=== PATIENT | female | born 1950 | race Caucasian/White ===

== ENCOUNTER → 2019-06-13 14:22 | Outpatient (CLI) | payer MEDICARE, MEDICAID, SELFPAY ==
[2019-06-13 15:41] LABS: Amphetamine/Metha Screen,Urine Negative ng/mL (<1000); Barbiturates Screen,Urine Negative ng/mL (<200); Benzodiazepines Screen,Urine Negative ng/mL (<200); Cannabinoid Screen,Urine Negative ng/mL (<50); Cocaine Screen,Urine Negative ng/mL (<300); Methadone Screen,Urine Negative ng/mL (<300); Opiate Screen,Urine Positive ng/mL (<300); Phencyclidine Screen,Urine Negative ng/mL (<25)
== END ==
PROVIDERS: Visit Provider Emergency Medicine
DX: M79.2 Neuralgia and neuritis, unspecified (principal)
CPT/HCPCS: 80305

== ENCOUNTER → 2019-07-04 17:48 | Outpatient (CLI) | payer MEDICARE, MEDICAID, SELFPAY ==
[2019-07-04 19:34] LABS: Amphetamine/Metha Screen,Urine Negative ng/mL (<1000); Barbiturates Screen,Urine Negative ng/mL (<200); Benzodiazepines Screen,Urine Negative ng/mL (<200); Cannabinoid Screen,Urine Negative ng/mL (<50); Cocaine Screen,Urine Negative ng/mL (<300); Methadone Screen,Urine Negative ng/mL (<300); Opiate Screen,Urine Positive ng/mL (<300); Phencyclidine Screen,Urine Negative ng/mL (<25)
== END ==
PROVIDERS: Visit Provider Emergency Medicine
DX: M54.2 Cervicalgia (principal)
CPT/HCPCS: 80305

== ENCOUNTER → 2019-07-14 14:13 | Outpatient (CLI) | payer MEDICARE, MEDICAID, SELFPAY ==
--- NOTE | 2019-07-14 14:20 | XR_ITS ---
PROCEDURE: XR KNEE RT 4V CLINICAL INDICATION: knee pain The COMPARISON: No exams were available for comparison FINDINGS: No fracture or dislocation. No lytic or blastic change. There is normal mineralization. The joint spaces are well-preserved. No significant degenerative/arthritic changes. No erosive changes evident. Other findings:None. IMPRESSION: No acute findings. Dictated by: Russ Pritchett MD 07/14/2019 18:03 Electronically signed by Russ Pritchett MD in [place] 07/14/2019 18:03
--- NOTE | 2019-07-14 14:20 | XR_ITS ---
PROCEDURE: XR KNEE LT 4V CLINICAL INDICATION: knee pain COMPARISON: XR KNEE RT 4V from 07/14/2019 FINDINGS: No fracture or dislocation. No lytic or blastic change. There is normal mineralization. The joint spaces are well-preserved. No significant degenerative/arthritic changes. No erosive changes evident. Other findings:There is a well-circumscribed 7 mm rounded calcific density projecting along the lateral aspect of the patella on the sunrise view and may represent an old patellar fracture. IMPRESSION: Old lateral patellar fracture versus bipartite patella otherwise negative Dictated by: Russ Pritchett MD 07/14/2019 18:02 Electronically signed by Russ Pritchett MD in [place] 07/14/2019 18:02
== END ==
PROVIDERS: PCP Emergency Medicine; Visit Provider Orthopaedic Surgery
DX: M25.562 Pain in left knee (principal); M25.561 Pain in right knee
CPT/HCPCS: 73564

== ENCOUNTER → 2019-08-01 16:31 | Outpatient (CLI) | payer MEDICARE, MEDICAID, SELFPAY ==
[2019-08-01 19:30] LABS: Amphetamine/Metha Screen,Urine Negative ng/mL (<1000); Barbiturates Screen,Urine Negative ng/mL (<200); Benzodiazepines Screen,Urine Negative ng/mL (<200); Cannabinoid Screen,Urine Negative ng/mL (<50); Cocaine Screen,Urine Negative ng/mL (<300); Methadone Screen,Urine Negative ng/mL (<300); Opiate Screen,Urine Negative ng/mL (<300); Phencyclidine Screen,Urine Negative ng/mL (<25)
[2019-08-10 17:08] LABS: Opiates Negative (Cutoff=100)
== END ==
PROVIDERS: Visit Provider Emergency Medicine
DX: G89.29 Other chronic pain (principal)
CPT/HCPCS: 80305; 80361; 80365; G0480

== ENCOUNTER → 2019-08-25 14:56 | Outpatient (CLI) | payer MEDICARE, MEDICAID, SELFPAY ==
--- NOTE | 2019-08-25 15:03 | MR_ITS ---
PROCEDURE: MR LUMBAR SPINE WO CON CLINICAL INDICATION: back pain Low back pain with bilateral leg pain numbness and tingling COMPARISON: No exams were available for comparison TECHNIQUE: Standard multiplanar multiecho sequences are performed without contrast. 3-D MIP and myelographic images are also rendered and reviewed FINDINGS: There is normal alignment. The spinal cord ends at the L2 level. T12-L1, L1-L2, L2-L3, L3-L4, and L4-5 have an unremarkable appearance. There is mild facet and ligamentum hypertrophy at L5-S1 with mild bilateral lateral recess and foraminal narrowing slightly greater on the right. There is transverse narrowing of the canal at this level however the AP dimension of the canal is normal. IMPRESSION: 1. There is mild facet and ligamentum hypertrophy at L5-S1 with mild bilateral lateral recess and foraminal narrowing slightly greater on the right. There is transverse narrowing of the canal at this level however the AP dimension of the canal is normal. 2. Otherwise negative MRI of the lumbar spine Dictated by: Russ Pritchett MD 08/26/2019 10:41 Electronically signed by Russ Pritchett MD in [place] 08/26/2019 10:41
== END ==
PROVIDERS: PCP Emergency Medicine; Visit Provider Emergency Medicine
DX: M54.16 Radiculopathy, lumbar region (principal); M54.5 Low back pain
CPT/HCPCS: 72148; 76376

== ENCOUNTER → 2019-09-01 13:54 | Outpatient (CLI) | payer MEDICARE, MEDICAID, SELFPAY ==
[2019-09-01 14:57] LABS: Amphetamine/Metha Screen,Urine Negative ng/mL (<1000); Barbiturates Screen,Urine Negative ng/mL (<200); Benzodiazepines Screen,Urine Negative ng/mL (<200); Cannabinoid Screen,Urine Negative ng/mL (<50); Cocaine Screen,Urine Positive ng/mL (<300); Methadone Screen,Urine Negative ng/mL (<300); Opiate Screen,Urine Negative ng/mL (<300); Phencyclidine Screen,Urine Negative ng/mL (<25)
[2019-09-07 20:11] LABS: Benzoylecgonine (GC/MS) 225 ng/mL (Cutoff=150); Cocaine + Metabolite Positive (.)
== END ==
PROVIDERS: Visit Provider Emergency Medicine
DX: M79.2 Neuralgia and neuritis, unspecified (principal); Z79.899 Other long term (current) drug therapy
CPT/HCPCS: 80305; 80353

== ENCOUNTER → 2019-09-15 17:18 | Outpatient (CLI) | payer MEDICARE, MEDICAID, SELFPAY ==
[2019-09-15 18:26] LABS: Amphetamine/Metha Screen,Urine Negative ng/mL (<1000); Barbiturates Screen,Urine Negative ng/mL (<200); Benzodiazepines Screen,Urine Positive ng/mL (<200); Cannabinoid Screen,Urine Negative ng/mL (<50); Cocaine Screen,Urine Negative ng/mL (<300); Methadone Screen,Urine Negative ng/mL (<300); Opiate Screen,Urine Positive ng/mL (<300); Phencyclidine Screen,Urine Negative ng/mL (<25)
[2019-09-28 23:07] LABS: Alprazolam Negative (Cutoff=100); Benzodiazepines Negative ng/mL (Cutoff=100); Clonazepam Negative (Cutoff=100); Codeine Negative (Cutoff=100); Flurazepam Negative (Cutoff=100); Hydrocodone Positive (.); Hydromorphone Negative (Cutoff=100); Lorazepam Negative (Cutoff=100); Midazolam Negative (Cutoff=100); Morphine Negative (Cutoff=100); Temazepam Negative (Cutoff=100); Triazolam Negative (Cutoff=100)
[2019-09-29 10:46] LABS: Hydrocodone Confirm 356 ng/mL (Cutoff=100); Opiates Positive (.)
== END ==
PROVIDERS: Visit Provider Emergency Medicine
DX: G89.29 Other chronic pain (principal); Z79.899 Other long term (current) drug therapy
CPT/HCPCS: 80305; 80346; 80361; G0480

== ENCOUNTER → 2019-10-06 16:49 | Outpatient (CLI) | payer MEDICARE, MEDICAID, SELFPAY ==
[2019-10-06 17:22] LABS: Amphetamine/Metha Screen,Urine Negative ng/mL (<1000); Barbiturates Screen,Urine Negative ng/mL (<200); Benzodiazepines Screen,Urine Negative ng/mL (<200); Cannabinoid Screen,Urine Negative ng/mL (<50); Cocaine Screen,Urine Positive ng/mL (<300); Methadone Screen,Urine Negative ng/mL (<300); Opiate Screen,Urine Positive ng/mL (<300); Phencyclidine Screen,Urine Negative ng/mL (<25)
== END ==
PROVIDERS: Visit Provider Emergency Medicine
DX: M47.816 Spondylosis without myelopathy or radiculopathy, lumbar region (principal)
CPT/HCPCS: 80305

== ENCOUNTER → 2019-11-03 17:20 | Outpatient (CLI) | payer MEDICARE, MEDICAID, SELFPAY ==
[2019-11-03 19:43] LABS: Amphetamine/Metha Screen,Urine Negative ng/mL (<1000); Barbiturates Screen,Urine Negative ng/mL (<200); Benzodiazepines Screen,Urine Negative ng/mL (<200); Cannabinoid Screen,Urine Negative ng/mL (<50); Cocaine Screen,Urine Positive ng/mL (<300); Methadone Screen,Urine Negative ng/mL (<300); Opiate Screen,Urine Positive ng/mL (<300); Phencyclidine Screen,Urine Negative ng/mL (<25)
== END ==
PROVIDERS: Visit Provider Emergency Medicine
DX: M54.2 Cervicalgia (principal)
CPT/HCPCS: 80305

== ENCOUNTER → 2019-12-06 18:37 | Outpatient (CLI) | payer MEDICARE, MEDICAID, SELFPAY ==
[2019-12-06 19:30] LABS: Amphetamine/Metha Screen,Urine Negative ng/mL (<1000); Barbiturates Screen,Urine Negative ng/mL (<200); Benzodiazepines Screen,Urine Negative ng/mL (<200); Cannabinoid Screen,Urine Negative ng/mL (<50); Cocaine Screen,Urine Negative ng/mL (<300); Methadone Screen,Urine Negative ng/mL (<300); Opiate Screen,Urine Positive ng/mL (<300); Phencyclidine Screen,Urine Negative ng/mL (<25)
== END ==
PROVIDERS: Visit Provider Emergency Medicine
DX: M47.816 Spondylosis without myelopathy or radiculopathy, lumbar region (principal)
CPT/HCPCS: 80305

== ENCOUNTER → 2019-12-11 09:34 | Outpatient (POV) | payer MEDICARE, MEDICAID, SELFPAY | PROVIDERS: Visit Provider Nurse Practitioner Family | DX: Z00.00 Encounter for general adult medical examination without abnormal findings (principal) ==

== ENCOUNTER → 2020-04-02 13:15 | Outpatient (CLI) | payer MEDICARE, MEDICAID, SELFPAY ==
[2020-04-02 15:41] LABS: Basophils # 0.1 K/mm3 (0-0.2); Basophils % 0.9 % (0.1-2.0); Eosinophils # 0.2 K/mm3 (0.0-0.4); Eosinophils % 1.8 % (0.1-12.0); Hematocrit 46.6 % (37.0-47.0); Hemoglobin 15.9 g/dL (12.2-16.2); Lymphocytes # 3.2 K/mm3 (0.7-4.5); Lymphocytes % 32.2 % (10-50); Mean Corpuscular HGB Conc 34.2 g/dL (31.8-35.4); Mean Corpuscular Hemoglobin 31.4 pg (27.0-31.2); Mean Corpuscular Volume 91.9 fl (81-99); Mean Platelet Volume 9.8 fl (7.4-10.4); Monocytes # 0.7 K/mm3 (0.1-1.0); Monocytes % 6.8 % (1.7-9.3); Neutrophils # 5.7 K/mm3 (1.8-7.8); Neutrophils % 58.3 % (37.0-80.0); Platelet Count 422 K/mm3 (142-424); Red Blood Count 5.07 M/mm3 (4.20-5.40); Red Cell Distribution Width 13.8 % (11.5-17.5); White Blood Count 9.9 K/mm3 (4.8-10.8)
[2020-04-02 15:48] LABS: Alanine Aminotransferase 12 U/L (12-78); Albumin Level 4.7 g/dl (3.5-5.0); Albumin/Globulin Ratio 1.4 (1.1-1.8); Alkaline Phosphatase 148 U/L (38-126); Anion Gap 15.3 mEq/L (5-15); Aspartate Amino Transferase 22 U/L (14-36); Bilirubin,Total 0.3 mg/dl (0.2-1.3); Blood Urea Nitrogen 10 mg/dl (7-17); Calcium 10.6 mg/dl (8.4-10.2); Carbon Dioxide 28 mmol/L (22.0-30.0); Chloride 101 mmol/L (98-107); Chol/HDL Ratio 4.1 (1-3.5); Cholesterol 228 mg/dl (140-200); Estimated Glomerular Filt Rate 71 ml/min (>60); GFR (African American) 86 ML/MIN (>60); Globulin 3.4 g/dL (1.3-3.2); Glucose 107 mg/dl (74-100); HDL Cholesterol 55 mg/dl (40-60); Potassium 4.3 mmoL/L (3.5-5.1); Sodium 140 mmol/L (136-145); Total Protein,Serum 8.1 g/dl (6.3-8.2); Triglycerides 192 mg/dl (30-150); VLDL Cholesterol 38 mg/dL (0-40)
[2020-04-02 16:00] LABS: Direct LDL Cholesterol 165.97 mg/dL (100-129)
[2020-04-02 16:06] LABS: Free T4 (Free Thyroxine) 1.29 ng/dl (0.78-2.19)
[2020-04-02 16:19] LABS: Thyroid Stimulating Hormone 3.26 uIU/mL (0.465-4.68)
[2020-04-04 09:13] LABS: Vitamin D 25 Hydroxy 13.4 ng/mL (30.0-100.0)
== END ==
PROVIDERS: Visit Provider Emergency Medicine
DX: E78.5 Hyperlipidemia, unspecified (principal); M54.5 Low back pain; R53.83 Other fatigue
CPT/HCPCS: 80053; 80061; 82652; 84439; 84443; 85025

== ENCOUNTER → 2020-04-10 09:46 | Outpatient (CLI) | payer MEDICARE, MEDICAID, SELFPAY ==
--- NOTE | 2020-04-10 09:46 | MM_ITS ---
PROCEDURE: MM DIG SCREENING MAMM BI W/CAD Digital Breast Tomosynthesis Included CLINICAL INDICATION: screening There is no personal or family history of breast cancer. COMPARISON: Previous mammograms have been purged TECHNIQUE: Standard CC and MLO images and 3D Tomosynthesis was obtained. R2 CAD reviewed. FINDINGS: There is a diffusely dense and heterogenic parenchymal pattern bilaterally. Tomasz images are most helpful this type of breast parenchyma. The findings of bilateral and symmetrical and there is no suspicious lesion in either breast. There are no suspicious microcalcifications. IMPRESSION: Heterogenic breast parenchyma with no suspicious lesions seen BI-RAD Category: 1 Negative FOLLOW-UP: 1YR 1 Year Follow-up (A letter has been sent to the patient regarding results of the study.) Dictated by: Dr. Omer Mojica MD 04/19/2020 11:[address] Omer Mojica MD in [place] 04/19/2020 11:57
== END ==
PROVIDERS: PCP Emergency Medicine; Visit Provider Emergency Medicine
DX: Z12.31 Encounter for screening mammogram for malignant neoplasm of breast (principal)
CPT/HCPCS: 77063; 77067

== ENCOUNTER → 2020-09-27 18:27 | Outpatient (CLI) | payer MEDICARE, MEDICAID, SELFPAY | PROVIDERS: Visit Provider Emergency Medicine | DX: R82.90 Unspecified abnormal findings in urine (principal) | CPT/HCPCS: 87086; 87088; 87186 ==

== ENCOUNTER → 2020-10-15 17:40 | Outpatient (CLI) | payer MEDICARE, MEDICAID, SELFPAY | PROVIDERS: Visit Provider Emergency Medicine | DX: N39.0 Urinary tract infection, site not specified (principal) | CPT/HCPCS: 87086 ==

== ENCOUNTER 2021-04-30 15:25 | Observation (INO) | payer MEDICARE, MEDICAID, SELFPAY ==
[2021-04-30] VITALS (10 sets, daily range): BP systolic 121–155; BP diastolic 65–86; PULSE 76–98; RESP 18–24; TEMP 36.6–37.2; O2SAT 91–98; BMI 23.4; BMI 24.3
--- NOTE | 2021-04-30 15:30 | CT_ITS ---
PROCEDURE INFORMATION: Exam: CTA Chest With Contrast Exam date and time: 04/30/2021 3:30 PM Age: 70 years old Clinical indication: Shortness of breath; Additional info: SOA, R/O pe TECHNIQUE: Imaging protocol: Computed tomographic angiography of the chest with contrast. 3D rendering (Not supervised by radiologist): MIP and/or 3D reconstructed images were created by the technologist. Radiation optimization: All CT scans at this facility use at least one of these dose optimization techniques: automated exposure control; mA and/or kV adjustment per patient size (includes targeted exams where dose is matched to clinical indication); or iterative reconstruction. Contrast material: ISOVUE 370; Contrast volume: 75 ml; Contrast route: INTRAVENOUS (IV); COMPARISON: No relevant prior studies available. FINDINGS: Pulmonary arteries: No evidence of pulmonary embolism. Aorta: No evidence of aortic dissection. Lungs: Calcified granuloma noted within the right lower lobe measuring 6 mm. Centrilobular emphysematous changes noted bilaterally. Atelectatic changes noted within both lung bases. Pleural spaces: Apical pleural thickening noted bilaterally. There is no evidence of pneumothorax. There are no pleural effusions present. Heart: Unremarkable. No cardiomegaly. No pericardial effusion. Mediastinal space: Hiatal hernia is present. Lymph nodes: Unremarkable. No enlarged lymph nodes. Bones/joints: Several old left-sided rib fractures noted. The thoracic spine demonstrates mild degenerative changes at multiple levels. Soft tissues: Unremarkable. IMPRESSION: 1. No evidence of pulmonary embolism. 2. No evidence of aortic dissection. 3. Centrilobular emphysematous changes noted bilaterally. 4. Apical pleural thickening noted bilaterally. 5. Hiatal hernia is present. 6. Atelectatic changes noted within both lung bases.
--- NOTE | 2021-04-30 15:30 | XR_ITS ---
PROCEDURE INFORMATION: Exam: XR Chest Exam date and time: 04/30/2021 3:30 PM Age: 70 years old Clinical indication: Shortness of breath; Patient HX: SOA, cough TECHNIQUE: Imaging protocol: XR of the chest. Views: 1 view. COMPARISON: CT ANGIO CHEST PE PROTOCOL 04/30/2021 4:32 PM FINDINGS: Lungs: The lungs are hyperinflated, consistent with underlying small airways disease. Atelectatic changes noted within both lung bases without focal pneumonia. Pleural spaces: Unremarkable. No pleural effusion. No pneumothorax. Heart/Mediastinum: Unremarkable. No cardiomegaly. Vasculature: The vasculature demonstrates diffuse mild atherosclerotic calcification. Bones/joints: Unremarkable. IMPRESSION: 1. The lungs are hyperinflated, consistent with underlying small airways disease. 2. Atelectatic changes noted within both lung bases without focal pneumonia. The thoracic spine demonstrates mild degenerative changes at multiple levels.
--- NOTE | 2021-04-30 15:35 | ECG_ITS ---
APPROVED REPORT Exam: Resting ECG HR:84 bpm ECG Measurements Heart Rate [address] 148 P 37 QRSd 68 QRS -60 QT 378 T 62 QTc 446 Conclusion Normal sinus rhythm Left axis deviation Inferior infarct, age undetermined Cannot rule out Anterior infarct, age undetermined Abnormal ECG Electronically signed by : Arnaldo Wyman, 05/01/2021 17:43:38
[2021-04-30 15:59] LABS: Basophils # 0.1 K/mm3 (0-0.2); Basophils % 0.7 % (0.1-2.0); Eosinophils # 0.5 K/mm3 (0.0-0.4); Eosinophils % 2.6 % (0.1-12.0); Hematocrit 44.9 % (37.0-47.0); Lymphocytes # 3.6 K/mm3 (0.7-4.5); Lymphocytes % 19.8 % (10-50); Mean Corpuscular HGB Conc 33.4 g/dL (31.8-35.4); Mean Corpuscular Hemoglobin 31.4 pg (27.0-31.2); Mean Corpuscular Volume 94.1 fl (81-99); Mean Platelet Volume 7.4 fl (7.4-10.4); Monocytes % 5.4 % (1.7-9.3); Neutrophils # 13.1 K/mm3 (1.8-7.8); Neutrophils % 71.5 % (37.0-80.0); Platelet Count 401 K/mm3 (142-424); Red Blood Count 4.78 M/mm3 (4.20-5.40); Red Cell Distribution Width 14.4 % (11.5-17.5); White Blood Count 18.4 K/mm3 (4.8-10.8)
[2021-04-30 16:00] LABS: Chloride 106 mmol/L (98-107)
[2021-04-30 16:01] LABS: Potassium 3.6 mmoL/L (3.5-5.1); Sodium 140 mmol/L (136-145)
[2021-04-30 16:03] LABS: Alanine Aminotransferase 18 U/L (12-78); Alkaline Phosphatase 121 U/L (38-126); Aspartate Amino Transferase 23 U/L (14-36); Bilirubin,Total 0.4 mg/dl (0.2-1.3); Blood Urea Nitrogen 9 mg/dl (7-17); Creatinine Clearance Estimated 46 mL/min (50-200); Estimated Glomerular Filt Rate 62 ml/min (>60); GFR (African American) 75 ML/MIN (>60); Lactic Acid 1.8 mmol/L (0.7-2.1); MANUAL DIFFERENTIAL MANUAL DIFFERENTIAL (MANUAL DIFF)
[2021-04-30 16:04] LABS: Albumin Level 3.9 g/dl (3.5-5.0); Albumin/Globulin Ratio 1.4 (1.1-1.8); Anion Gap 9.6 mEq/L (5-15); Calcium 8.8 mg/dl (8.4-10.2); Carbon Dioxide 28 mmol/L (22.0-30.0); Globulin 2.8 g/dL (1.3-3.2); Glucose 112 mg/dl (74-100); Total Protein,Serum 6.7 g/dl (6.3-8.2)
[2021-04-30 16:15] LABS: Coronavirus 19, PCR Not Detected (NotDetected); Influenza A, PCR Not Detected (NotDetected); Influenza B, PCR Not Detected (NotDetected)
[2021-04-30 16:17] LABS: Troponin I < 0.01 ng/ml (0.00-0.034)
--- NOTE | 2021-04-30 16:17 | HMH.EDSOB ---
ED Disposition Clinical Impression: Acute exacerbation of chronic obstructive airways disease, SIRS (systemic inflammatory response syndrome), Tobacco use Disposition: Admitted as Observation Condition on Discharge: Good - Critical Care Critical Care Time: No Attestation: On 04/30/21, the high probability of a clinically significant, sudden or life threatening deterioration of the following system(s) required my full and direct attention, intervention and personal management. The time I documented below is in addition to time spent performing reported procedures but includes the following listed in this critical care notation. Medical Decision Making - Medical Records Medical records reviewed: Yes: I reviewed the patient's medical records. - Luis Inquiry Pt receiving controlled substance: No Vital Signs: 04/30/21 15:25 04/30/21 15:31 04/30/21 16:00 Temperature 99.0 F Temperature Source Oral Pulse Rate 94 H 89 Pulse Rate [Right Radial] 97 H Respiratory Rate 18 24 23 Blood Pressure 142/65 H 124/86 Blood Pressure [Right Arm] 155/76 H Blood Pressure Mean [Right Arm] 102 Blood Pressure Source [Right Arm] Automatic Cuff Blood Pressure Position [Right Arm] Sitting 02 Sat by Pulse Oximetry 96 95 95 Oxygen Delivery Method Room Air 04/30/21 16:45 Temperature Temperature Source Pulse Rate 93 H Pulse Rate [Right Radial] Respiratory Rate Blood Pressure 145/79 H Blood Pressure [Right Arm] Blood Pressure Mean [Right Arm] Blood Pressure Source [Right Arm] Blood Pressure Position [Right Arm] 02 Sat by Pulse Oximetry 98 Oxygen Delivery Method - Lab Data Lab results reviewed: Yes: I reviewed the patient's lab results. Lab Results 04/30/21 15:42: WBC 18.4 H, RBC 4.78, Hgb 15.0, Hct 44.9, MCV 94.1, MCH 31.4 H, MCHC 33.4, RDW 14.4, Plt Count 401, MPV 7.4, Neut % (Auto) 71.5, Lymph % (Auto) 19.8, [place] % (Auto) 5.4, Eos % (Auto) 2.6, Baso % (Auto) 0.7, Neut # (Auto) 13.1 H, Lymph # (Auto) 3.6, [place] # (Auto) 1.0, Eos # (Auto) 0.5 H, Baso # (Auto) 0.1, Total Counted 100, Neutrophils % (Manual) 74, Lymphocytes % (Manual) 21, Monocytes % (Manual) 2, Eosinophils % (Manual) 3, Platelet Estimate Normal, Hypochromasia 1+ 04/30/21 15:42: Sodium 140, Potassium 3.6, Chloride 106, Carbon Dioxide 28, Anion Gap 9.6, BUN 9, Creatinine 0.90, Estimated Creat Clear 46, Estimated GFR 62, Est GFR ( Amer) 75, Glucose 112 H, Calcium 8.8, Total Bilirubin 0.4, AST 23, ALT 18, Alkaline Phosphatase 121, Troponin I < 0.01, Total Protein 6.7, Albumin 3.9, Globulin 2.8, Albumin/Globulin Ratio 1.4 04/30/21 15:42: ESR 20 04/30/21 15:42: Lactate 1.8 04/30/21 16:11: SARS-CoV-2 (PCR) Not detected, Influenza A Untype (PCR) Not detected, Influenza Type B (PCR) Not detected Result diagrams: 04/30/21 15:42 04/30/21 15:42 Orders (Tests/Meds): ED MEDICATIONS Generic Name Dose Route Start Last Admin Trade Name Freq PRN Reason Stop Dose Admin Levofloxacin/Dextrose 500 mg in 100 mls @ 100 mls/hr 04/30/21 17:30 04/30/21 17:36 Levaquin 500mg/100ml Premix IV 05/14/21 17:29 100 mls/hr Q24H LUCIANA Administration Protocol Sodium Chloride 3 ml 04/30/21 17:37 Sodium Chloride 3% 15ml Neb IH 05/30/21 17:36 ONCE PRN INDUCE SPUTUM COLLECTION Discontinued Medications Generic Name Dose Route Start Last Admin Trade Name Freq PRN Reason Stop Dose Admin Iopamidol 70 ml 04/30/21 16:33 04/30/21 16:34 Iopamidol-370 (76%);100ml Bottle IV 04/30/21 16:34 70 ml ONCE ONE Administration Methylprednisolone Sodium Succinate 125 mg 04/30/21 17:16 04/30/21 17:32 Methylprednisolone Sod Succ 125mg Vial IV 04/30/21 17:17 125 mg ONCE ONE Administration Sodium Chloride 40 ml 04/30/21 16:33 04/30/21 16:34 0.9 % Sodium Chloride 50 Ml Vial IV 04/30/21 16:34 40 ml ONCE ONE Administration Sodium Chloride 10 ml 04/30/21 16:33 04/30/21 16:34 Sodium Chloride 0.9% 10ml Syr (Rad Only) I
--- NOTE | 2021-04-30 16:24 | PC.NURSE ---
pt gone to ct
[2021-04-30 16:30] LABS: Erythrocyte Sedimentation Rate 20 mm/hr (0-30)
[2021-04-30 16:46] LABS: Eosinophils % 3 % (0-3); Lymphocytes % 21 % (10-50); Monocytes % 2 % (2-9); Neutrophils % 74 % (42-76); Platelet Estimate Normal; Total Cells Counted 100
[2021-04-30 16:47] LABS: Hypochromasia 1+
--- NOTE | 2021-04-30 17:35 | PC.NURSE ---
report given to lucasrn
[2021-04-30 18:16] LABS: NT Pro Brain Natriuretic Pep. 136 pg/mL (0-125)
--- NOTE | 2021-04-30 19:13 | PC.NURSE ---
SHE IS AOX4. TOLERATING RA WELL. TOLERATED PO INTAKE WELL. SHE DENIES N/V/D ABD IS SOFT AND NON-TENDER. SEIZURE PADS PLACED ON BED R/T H/X OF SEIZURES.
[2021-04-30 19:27] LABS: Troponin I < 0.01 ng/ml (0.00-0.034)
[2021-04-30 22:47] LABS: Troponin I < 0.01 ng/ml (0.00-0.034)
[2021-05-01 03:37] VITALS: BP 129/81; PULSE 75; RESP 18; TEMP 36.3; O2SAT 89
[2021-05-01 04:58] VITALS: BMI 25.4
--- NOTE | 2021-05-01 05:19 | PC.NURSE ---
patient has had an uneventful night this shift. Has shown no s/s of acute distress, call light in reach, bed at lowest level for safety; will continue to monitor.
[2021-05-01 06:10] VITALS: PULSE 91; PULSE 94
[2021-05-01 06:22] LABS: Basophils % 0.2 % (0.1-2.0); Eosinophils # 0.1 K/mm3 (0.0-0.4); Eosinophils % 0.7 % (0.1-12.0); Hemoglobin 13.7 g/dL (12.2-16.2); Lymphocytes % 5.9 % (10-50); Mean Corpuscular HGB Conc 32.6 g/dL (31.8-35.4); Mean Corpuscular Hemoglobin 31.2 pg (27.0-31.2); Mean Corpuscular Volume 95.8 fl (81-99); Mean Platelet Volume 7.7 fl (7.4-10.4); Monocytes # 0.1 K/mm3 (0.1-1.0); Monocytes % 0.8 % (1.7-9.3); Neutrophils # 15.7 K/mm3 (1.8-7.8); Neutrophils % 92.5 % (37.0-80.0); Platelet Count 336 K/mm3 (142-424); Red Blood Count 4.39 M/mm3 (4.20-5.40); Red Cell Distribution Width 14.2 % (11.5-17.5); White Blood Count 16.9 K/mm3 (4.8-10.8)
[2021-05-01 06:30] LABS: Anion Gap 7.4 mEq/L (5-15); Blood Urea Nitrogen 14 mg/dl (7-17); Calcium 8.7 mg/dl (8.4-10.2); Carbon Dioxide 26 mmol/L (22.0-30.0); Chloride 106 mmol/L (98-107); Chol/HDL Ratio 4.2 (1-3.5); Cholesterol 216 mg/dl (140-200); Creatinine Clearance Estimated 48 mL/min (50-200); Estimated Glomerular Filt Rate 71 ml/min (>60); GFR (African American) 86 ML/MIN (>60); Glucose 172 mg/dl (74-100); HDL Cholesterol 51 mg/dl (40-60); Magnesium 2.2 mg/dl (1.6-2.3); Potassium 4.4 mmoL/L (3.5-5.1); Sodium 135 mmol/L (136-145); Triglycerides 121 mg/dl (30-150); VLDL Cholesterol 24 mg/dL (0-40)
[2021-05-01 06:41] LABS: Direct LDL Cholesterol 131.42 mg/dL (100-129)
[2021-05-01 06:56] LABS: MANUAL DIFFERENTIAL MANUAL DIFFERENTIAL (MANUAL DIFF)
[2021-05-01 07:11] LABS: Lymphocytes % 7 % (10-50); Monocytes % 4 % (2-9); Neutrophils % 89 % (42-76); Platelet Estimate Normal; RBC Morphology Normal; Total Cells Counted 100
[2021-05-01 07:28] VITALS: BP 133/73; PULSE 84; RESP 17; TEMP 36.9; O2SAT 88
--- NOTE | 2021-05-01 07:52 | HMH.PHAVTE ---
[facility] Pharmacy VTE Monitoring - Patient Demographics Admission date: 05/01/21 Report Date: 05/01/21 Time: 07:52 Allergies/Adverse Reactions: Patient Allergies Penicillins Allergy (Intermediate, Verified 04/30/21 14:45) Hives morphine Allergy (Mild, Verified 04/30/21 14:45) itchin simvastatin Adverse Reaction (Severe, Verified 04/30/21 14:45) Muscle Pain iodine Adverse Reaction (Intermediate, Verified 04/30/21 14:45) swelling Height: 1.52 m Weight: 58.655 kg Patient Problems: Current Active Problems Acute exacerbation of chronic obstructive airways disease (Acute) SIRS (systemic inflammatory response syndrome) (Acute) Tobacco use (Acute) - VTE Risk Labs: VTE Related Lab Results Hgb 13.7 g/dL (12.2-16.2) 05/01/21 05:57 Hct 42.0 % (37.0-47.0) 05/01/21 05:57 Plt Count 336 K/mm3 (142-424) 05/01/21 05:57 BUN 14 mg/dl (7-17) D 05/01/21 05:57 Creatinine 0.80 mg/dl (0.52-1.04) 05/01/21 05:57 Estimated Creat Clear 48 mL/min (50-200) 05/01/21 05:57 Was VTE Risk Assessment Performed: Yes VTE Score: 3 VTE Risk Level: Low Risk Clinical Trial Participant: No - Prophylaxis VTE Prophylaxis Ordered?: Yes Types of VTE Prophylaxis: TEDS Knee High
--- NOTE | 2021-05-01 10:12 | HMH.CNCARD ---
History of Present Illness Consult date: 05/01/21 Requesting physician: Tutu Adams Consult reason: shortness of breath Chief complaint: SOA History of present illness: This is a 70-year-old white female who presented to the emergency department with complaints of shortness of breath. The patient states that she has been short of breath since the end of January after she got her second Covid vaccine. She states that her shortness of breath is associated with a productive cough. She states that she coughs up clear phlegm. The patient states that this has been progressively worsening since January. She has been treated outpatient for COPD and just felt like she was not getting any better despite being on antibiotics and steroids. The patient was sent to the emergency department for further evaluation of her shortness of breath. The patient was admitted for COPD exacerbation. Cardiology was consulted for possible CHF. She did have a slight bump in her BNP at 136. She states that her shortness of breath has significantly improved since being in the hospital. She states that she has not been up much so she has not had any severe shortness of breath since being in the hospital. She denies any chest pain or pressure. She denies any fever, chills, nausea, vomiting, diarrhea, PND or orthopnea. She states that sometimes at the end of the day she does have bilateral lower extremity edema. But the patient has no edema on exam. [facility] History I have reviewed the patient's past medical history: Yes Medical History: Reports:: Anxiety, Asthma, Depression, Hyperlipidemia, Seizures Denies:: Diabetes Mellitus Type 1, Diabetes Mellitus Type 2 *Have you ever received a pneumonia vaccine?: Yes *Have you received a flu vaccine this season?: Yes Other Medical History: Reports: Other Other Surgeries: Yes: Cancer Surgery, Cholecystectomy, Colonoscopy, Colon Resection, Hernia Repair, Hysterectomy-Total, Other Amputation: No Fractures: Yes (neck,foot,fingers) - *Social History Last grade of school completed: High school graduate Smoking Status: Former smoker Tobacco Type: cigarettes # Packs/Day (cigarettes): 1 Alcohol Intake: never Alcohol Intake Frequency:: holidays/special occasions only Substance Use Type: denies use *Occupational Status:: retired Housing: apartment Household Members: family *Travel in the last 8 weeks: None - Psychiatric History Pschychiatric History:: Reports:: Anxiety, Depression Family Hx:: Hypertension Meds Home Medications Medication Instructions Recorded Confirmed Type albuterol sulfate 90 mcg/actuation 2 puff INHALATION Q4-6H PRN #18 g 04/15/21 04/30/21 Rx aerosol inhaler Budesonide/Formoterol Fumarate 1 puff INHALATION DAILY 04/30/21 04/30/21 History [Symbicort] Cholecalciferol (Vitamin D3) 1,250 mcg PO DAILY 04/30/21 04/30/21 History [Vitamin D3 50,000 unit Cap] Citalopram Hydrobromide 20 mg PO DAILY 04/30/21 04/30/21 History [Citalopram HBr] Ergocalciferol (Vitamin D2) 50 mcg PO DAILY 04/30/21 04/30/21 History [Vitamin D2] Gabapentin 600 mg PO TID 04/30/21 04/30/21 History Mirtazapine 15 mg PO HS 04/30/21 05/01/21 History Oxybutynin Chloride [Oxybutynin 15 mg PO DAILY 04/30/21 05/01/21 History Chloride ER] Zonisamide 300 mg PO HS 04/30/21 04/30/21 History clonazePAM [Clonazepam] 0.5 mg PO DAILY 04/30/21 04/30/21 History diphenhydrAMINE HCL 50 mg PO HS 04/30/21 05/01/21 History [diphenhydrAMINE 50mg capsule] gemfibroziL [Gemfibrozil] 600 mg PO BID 04/30/21 04/30/21 History Allergies Allergy/AdvReac Type Severity Reaction Status Date / Time Penicillins Allergy Intermediate Hives Verified 04/30/21 14:45 morphine Allergy Mild itchin Verified 04/30/21 14:45 simvastatin AdvReac Severe Muscle Pain Verified 04/30/21 14:45 iodine AdvReac Intermediate swelling Verified 04/30/21 14:45 Exam Vital signs and Labs for Last 24 Hours: Temp Pulse Resp BP Pulse Ox 98.5 F 84 17 133/73
--- NOTE | 2021-05-01 10:30 | HMH.HPDC ---
General - General Admission date:: 04/30/21 Discharge date: 05/01/21 *Admission Date: 05/01/21 *Chief complaint: Shortness of breath *History of present illness: This is a 70-year-old white female who presented to the emergency department with complaints of shortness of breath. The patient states that she has been short of breath since the end of January after she got her second Covid vaccine. She states that her shortness of breath is associated with a productive cough. She states that she coughs up clear phlegm. The patient states that this has been progressively worsening since January. She has been treated outpatient for COPD and just felt like she was not getting any better despite being on antibiotics and steroids. The patient was sent to the emergency department for further evaluation of her shortness of breath. The patient was admitted for COPD exacerbation. Cardiology was consulted for possible CHF. She did have a slight bump in her BNP at 136. She states that her shortness of breath has significantly improved since being in the hospital. She states that she has not been up much so she has not had any severe shortness of breath since being in the hospital. She denies any chest pain or pressure. She denies any fever, chills, nausea, vomiting, diarrhea, PND or orthopnea. She states that sometimes at the end of the day she does have bilateral lower extremity edema. But the patient has no edema on exam (Per Abrahan Cee APRN). [facility] History I have reviewed the patient's past medical history: Yes Medical History: Reports:: Anxiety, Asthma, Depression, Hyperlipidemia, Seizures Denies:: Diabetes Mellitus Type 1, Diabetes Mellitus Type 2 *Have you ever received a pneumonia vaccine?: Yes *Have you received a flu vaccine this season?: Yes Other Medical History: Reports: Other Other Surgeries: Yes: Cancer Surgery, Cholecystectomy, Colonoscopy, Colon Resection, Hernia Repair, Hysterectomy-Total, Other Amputation: No Fractures: Yes (neck,foot,fingers) - *Social History Last grade of school completed: High school graduate Smoking Status: Former smoker Tobacco Type: cigarettes # Packs/Day (cigarettes): 1 Alcohol Intake: never Alcohol Intake Frequency:: holidays/special occasions only Substance Use Type: denies use *Occupational Status:: retired Housing: apartment Household Members: family *Travel in the last 8 weeks: None - Psychiatric History Pschychiatric History:: Reports:: Anxiety, Depression Family Hx:: Hypertension Review of Systems - Review of Systems Review of systems:: pertinent systems reviewed and negative unless documented below - Constitutional Reports fatigue, Denies body ache(s), Denies headache(s) - Eyes Denies blurry vision, Denies double vision - ENT Denies abnormal hearing, Denies difficulty swallowing - *Cardiovascular Reports shortness of breath, Reports shortness of breath with activity, Denies chest pain, Denies chest pain with activity - *Respiratory Reports shortness of breath, Reports shortness of breath with activity, Denies chest congestion, Denies cough - *Gastrointestinal Denies abdominal pain, Denies change in bowel habits - *Musculoskeletal Denies joint pain, Denies back pain - Integumentary/Breasts Denies bleeding lesions, Denies change in skin color - *Neurologic Denies headache(s), Denies seizure-like activity - Psychiatric Denies abnormal sleep pattern, Denies anxiety - Endocrine Denies cold intolerance, Denies heat intolerance - Hematologic/Lymphatic Denies easy bleeding, Denies enlarged lymph nodes - Allergic/Immunologic Reports wheezing, Denies GI upset with certain foods, Denies seasonal runny nose Exam Vital signs and Labs for Last 24 Hours: Temp Pulse Resp BP Pulse Ox 98.5 F 84 17 133/73 88 L 05/01/21 07:28 05/01/21 07:28 05/01/21 07:28 05/01/21 07:28 05/01/21 07:28 Laboratory Results - last 24 hr 04/30/21 15:42: WBC 18.4 H, RBC 4.78,
== END 2021-05-01 11:30 | disposition home or self-care (01) ==
LOC: ER 15:55 → 2ND 17:44
PROVIDERS: Admitting Provider Emergency Medicine; Emergency Provider Emergency Medicine; PCP Emergency Medicine; Visit Provider Emergency Medicine
DX: J44.1 Chronic obstructive pulmonary disease with (acute) exacerbation (principal); Z20.822 Contact with and (suspected) exposure to COVID-19; E78.5 Hyperlipidemia, unspecified; F17.210 Nicotine dependence, cigarettes, uncomplicated; R06.9 Unspecified abnormalities of breathing; R06.02 Shortness of breath; Z79.899 Other long term (current) drug therapy
CPT/HCPCS: 36415; 71045; 71275; 80048; 80053; 80061; 83605; 83735; 83880; 84484; 85007; 85025; 85651; 87040; 90715; 93005; 93306; 94640; 99284; 99291; G0378; J1956; Q9967; U0003

== ENCOUNTER → 2022-03-11 15:49 | Outpatient (CLI) | payer MEDICARE, MEDICAID, SELFPAY | PROVIDERS: PCP Nurse Practitioner Family; Visit Provider Nurse Practitioner Family | DX: R32 Unspecified urinary incontinence (principal); B96.20 Unspecified Escherichia coli [E. coli] as the cause of diseases classified elsewhere | CPT/HCPCS: 87086; 87186 ==

== ENCOUNTER → 2022-06-18 06:29 | Outpatient (CLI) | payer MEDICARE, MEDICAID, SELFPAY ==
[2022-06-18 18:19] LABS: Basophils # 0.1 K/mm3 (0-0.2); Basophils % 0.8 % (0.1-2.0); Eosinophils # 0.4 K/mm3 (0.0-0.4); Eosinophils % 2.6 % (0.1-12.0); Hematocrit 47.4 % (37.0-47.0); Lymphocytes # 2.1 K/mm3 (0.7-4.5); Lymphocytes % 14.3 % (10-50); Mean Corpuscular HGB Conc 31.7 g/dL (31.8-35.4); Mean Corpuscular Volume 97.8 fl (81-99); Mean Platelet Volume 9.9 fl (7.4-10.4); Monocytes # 0.9 K/mm3 (0.1-1.0); Monocytes % 5.8 % (1.7-9.3); Neutrophils # 11.3 K/mm3 (1.8-7.8); Neutrophils % 76.6 % (37.0-80.0); Platelet Count 482 K/mm3 (142-424); Red Blood Count 4.84 M/mm3 (4.20-5.40); Red Cell Distribution Width 13.2 % (11.5-17.5); White Blood Count 14.8 K/mm3 (4.8-10.8)
[2022-06-18 18:19] LABS: Alanine Aminotransferase 19 U/L (12-78); Albumin Level 3.9 g/dl (3.5-5.0); Albumin/Globulin Ratio 1.3 (1.1-1.8); Alkaline Phosphatase 147 U/L (38-126); Anion Gap 11.7 mEq/L (5-15); Aspartate Amino Transferase 25 U/L (14-36); Bilirubin,Total 0.2 mg/dl (0.2-1.3); Blood Urea Nitrogen 7 mg/dl (7-17); Calcium 9.4 mg/dl (8.4-10.2); Carbon Dioxide 23 mmol/L (22.0-30.0); Chloride 109 mmol/L (98-107); Chol/HDL Ratio 6.5 (1-3.5); Cholesterol 242 mg/dl (140-200); Estimated Glomerular Filt Rate 71 ml/min (>60); GFR (African American) 86 ML/MIN (>60); Glucose 116 mg/dl (74-100); HDL Cholesterol 37 mg/dl (40-60); Potassium 3.7 mmoL/L (3.5-5.1); Sodium 140 mmol/L (136-145); Total Protein,Serum 6.9 g/dl (6.3-8.2); Triglycerides 209 mg/dl (30-150); VLDL Cholesterol 42 mg/dL (0-40)
[2022-06-18 18:38] LABS: 25-OH Vitamin D, Total 41.2 ng/mL (30-100); Free T4 (Free Thyroxine) 1.32 ng/dl (0.78-2.19)
[2022-06-18 18:50] LABS: Thyroid Stimulating Hormone 3.18 uIU/mL (0.465-4.68)
[2022-06-20 08:35] LABS: Direct LDL Cholesterol 153 mg/dL (100-129)
== END ==
PROVIDERS: PCP Physician Assistant; Visit Provider Physician Assistant
DX: E55.9 Vitamin D deficiency, unspecified (principal); R53.83 Other fatigue; E03.9 Hypothyroidism, unspecified; K59.00 Constipation, unspecified
CPT/HCPCS: 80053; 80061; 82306; 84439; 84443; 85025

== ENCOUNTER → 2022-06-19 12:02 | Outpatient (CLI) | payer MEDICARE, MEDICAID, SELFPAY ==
--- NOTE | 2022-06-19 12:11 | XR_ITS ---
FINAL REPORT TECHNIQUE: Chest PA & Lateral CLINICAL HISTORY: elevated white count COMPARISON: April 30, 2021 FINDINGS: Two views of the chest were performed. The heart size is normal. The mediastinum is within normal limits. There are mild chronic changes in the lung bases. There are no pleural effusions. There is no pneumothorax. The bony thorax appears intact. IMPRESSION: Chronic changes the lung bases with no acute cardiopulmonary process. Reviewed, Interpreted and Dictated by Juan Ramon Luis MD Transcribed by Pilar Maurer Authenticated and [facility]
--- NOTE | 2022-06-19 12:11 | XR_ITS ---
FINAL REPORT CLINICAL HISTORY: right ankle pain, lateral pain, no injury FINDINGS: RIGHT ANKLE Three views of the right ankle were obtained. There is no acute fracture or dislocation. The mortise is intact. Visualized joint spaces are normally aligned. Soft tissues are unremarkable. IMPRESSION: No acute bony abnormality. Reviewed, Interpreted and Dictated by Juan Ramon Luis MD Transcribed by Pilar Maurer Authenticated and [facility]
== END ==
PROVIDERS: PCP Emergency Medicine; Visit Provider Physician Assistant
DX: M25.571 Pain in right ankle and joints of right foot (principal); R06.00 Dyspnea, unspecified; D72.829 Elevated white blood cell count, unspecified
CPT/HCPCS: 71046; 73610

== ENCOUNTER → 2022-06-25 13:51 | Outpatient (CLI) | payer MEDICARE, MEDICAID, SELFPAY ==
--- NOTE | 2022-06-25 13:52 | CA_ITS ---
APPROVED REPORT EXAM: Comprehensive 2D, Doppler, and color-flow Echocardiogram Perinatal Tech: Flor Rain RVT Ht: 5 ft 0 in Wt: 126lbs BSA: 1.53 BP: 118/60 mmHg Indications: SOA,SMOKER,RHEUMATIC FEVER 2D Dimensions LVOT 1.80 cm (M/F) 1.5-2.5 LA Volume 11.20 mL LA Volume Index 7.32 mL/m2 (M/F) 16-34 M-Mode Dimensions RVDd 2.51 cm (0.9-2.6) LA Diam 2.92 cm (1.9-4.0) LVDd 4.29 cm (3.5-5.7) Ao Diam 2.86 cm (2.0-3.7) LVDs 3.00 cm (3.5-5.7) IVSd 0.76 cm (0.6-1.1) PWd 0.87 cm (0.6-1.1) EF (Teich) 57.60% FS 30.10% EDV (Teich) 82.60 mL TAPSE 1.39 (<1.7) ESV (Teich) 35.00 mL LV Diastology E Decel Time 193.00 (160-240 msec) E/A Ratio 0.9 MED E' 7.70 (< 7 cm/sec) E'/MED E' Ratio 7.84 (>14) LAT E' 6.90 (<10 cm/sec) E/LAT E' Ratio 8.75 (>14) Aortic Valve AO Peak GR. 4.40 mmHg Mitral Valve MV E Max Trevon. 60.00 (40-130 cm/s) MV A Velocity 69.00 (40-130 cm/s) E/A Ratio 0.87 MV Decel. Time 193.00 (160-240 ms) MV PHT 57.00 ms Pulmonary Valve PV Peak Velocity 73.00 (50-150 cm/s) Tricuspid Valve TR P. Velocity 239.00 cm/s RAP Estimate 10.00 mmHg RVSP 32.80 mmHg Left Ventricle Technically difficult study because of the patient factors and poor acoustic windows. Left atrium is mildly enlarged, left ventricle is normal size mild concentric left ventricular hypertrophy, estimated ejection fraction 55% with no regional wall motion abnormality, grade 1 diastolic dysfunction seen without tissue Doppler evidence of raise left atrial pressure. Right Ventricle Right atrium and right ventricle are mildly enlarged with normal contractility. Aortic Valve Aortic valve is minimally thickened and calcified without aortic stenosis or aortic insufficiency. Mitral Valve Mitral valve is grossly normal, there is trace mitral regurgitation. Tricuspid Valve Tricuspid valve grossly normal, there is trace tricuspid regurgitation, tricuspid regurgitation jet velocity is inadequate for calculation of the right ventricular systolic pressure. Pulmonic Valve Pulmonic valve is poorly visualized. Great Vessels Aortic root is normal size. Inferior vena cava is poorly visualized. Pericardium No significant pericardial effusion noted. Conclusion 1. Technically difficult study because of the patient factors and poor acoustic windows. 2. Biatrial enlargement, normal left ventricular size, mild concentric left ventricular hypertrophy, estimated ejection fraction 55% with no regional wall motion abnormality, grade 1 diastolic dysfunction seen without tissue Doppler evidence of raise left atrial pressure. 3. Mildly enlarged right ventricle with normal contractility. 4. Trace mitral and tricuspid regurgitation. 5. No significant pericardial effusion noted, there is anterior echo-free space seen. 6. Inferior vena cava is poorly visualized. Electronically signed by : Chon Dumas MD 06/26/2022 12:49:43
--- NOTE | 2022-06-25 13:52 | CA_ITS ---
FINAL REPORT TECHNIQUE: Color Doppler, duplex Doppler and chicas scale sonography of the bilateral neck vasculature was performed. Velocities were measured in the carotid arteries. Stenosis evaluation based on velocity criteria. CLINICAL HISTORY: STENOSIS FINDINGS: The peak systolic velocity of the right common carotid artery is 88 cm/sec and internal carotid artery 111 cm/sec. The diastolic velocity in the internal carotid artery is 37 cm/sec. The ICA/CCA ratio is 1.3. Visually, a small amount of plaque is seen. These findings are consistent with less than 50% stenosis. The external carotid artery is patent. The right vertebral artery is patent with antegrade flow. The peak systolic velocity of the left common carotid artery is 127 cm/sec and internal carotid artery 110 cm/sec. The diastolic velocity in the internal carotid artery is 46 cm/sec. The ICA/CCA ratio is 1.5. Visually, a small amount of plaque is seen. These findings are consistent with less than 50% stenosis. The external carotid artery is patent. The left vertebral artery is patent with antegrade flow. IMPRESSION: No evidence of significant carotid stenosis. Bilateral patent vertebral arteries. If indicated, CTA or MRA could further evaluate. Reviewed, Interpreted and Dictated by Maynor Nesbitt III, MD Transcribed by Jeet Collins Authenticated and [facility]
--- NOTE | 2022-06-25 13:58 | MM_ITS ---
PROCEDURE INFORMATION: Exam: MG Bilateral Screening 3D Mammography Exam date and time: 06/25/2022 1:49 PM Age: 71 years old Clinical indication: Screening examination TECHNIQUE: Imaging protocol: Bilateral Screening tomosynthesis and 2D mammography including computer-aided detection (CAD) when performed. COMPARISON: MG MM DIG SCREENING MAMM BI W/CAD 04/10/2020 10:10 AM FINDINGS: MAMMOGRAPHY: Breast composition: The breasts are heterogeneously dense, which may obscure small masses. Mass: None. Architectural distortion: None. Calcifications: No suspicious calcifications. Asymmetric density: None. Skin thickening: None. Axillary adenopathy: None. IMPRESSION: No mammographic evidence of malignancy. Annual screening is recommended unless otherwise clinically indicated. ASSESSMENT: BI-RADS Category 1: Negative
== END ==
PROVIDERS: PCP Emergency Medicine; Visit Provider Physician Assistant
DX: R06.00 Dyspnea, unspecified (principal); R09.89 Other specified symptoms and signs involving the circulatory and respiratory systems; I25.2 Old myocardial infarction; Z12.31 Encounter for screening mammogram for malignant neoplasm of breast
CPT/HCPCS: 77063; 77067; 93306; 93880

== ENCOUNTER → 2022-07-18 14:25 | Outpatient (CLI) | payer MEDICARE, SELFPAY ==
[2022-07-18 15:17] LABS: Basophils # 0.3 K/mm3 (0-0.2); Basophils % 2.3 % (0.1-2.0); Eosinophils # 0.5 K/mm3 (0.0-0.4); Eosinophils % 4.7 % (0.1-12.0); Hematocrit 48.3 % (37.0-47.0); Hemoglobin 15.5 g/dL (12.2-16.2); Lymphocytes # 2.6 K/mm3 (0.7-4.5); Lymphocytes % 23.4 % (10-50); Mean Corpuscular Hemoglobin 30.9 pg (27.0-31.2); Mean Corpuscular Volume 96.6 fl (81-99); Mean Platelet Volume 8.1 fl (7.4-10.4); Monocytes # 0.5 K/mm3 (0.1-1.0); Monocytes % 4.5 % (1.7-9.3); Neutrophils # 7.2 K/mm3 (1.8-7.8); Neutrophils % 65.2 % (37.0-80.0); Platelet Count 439 K/mm3 (142-424); Red Cell Distribution Width 13.4 % (11.5-17.5)
[2022-07-18 15:28] LABS: Chloride 104 mmol/L (98-107); Sodium 143 mmol/L (136-145)
[2022-07-18 15:31] LABS: Blood Urea Nitrogen 11 mg/dl (7-17); Estimated Glomerular Filt Rate 62 ml/min (>60); GFR (African American) 75 ML/MIN (>60)
[2022-07-18 15:32] LABS: Calcium 9.1 mg/dl (8.4-10.2); Carbon Dioxide 28 mmol/L (22.0-30.0); Glucose 110 mg/dl (74-100)
== END ==
PROVIDERS: PCP Emergency Medicine; Visit Provider Physician Assistant
DX: I20.8 Other forms of angina pectoris (principal); R06.00 Dyspnea, unspecified; R06.02 Shortness of breath; R07.9 Chest pain, unspecified; R42 Dizziness and giddiness; R94.31 Abnormal electrocardiogram [ECG] [EKG]; Z72.0 Tobacco use; Z86.79 Personal history of other diseases of the circulatory system; Z01.812 Encounter for preprocedural laboratory examination; Z20.822 Contact with and (suspected) exposure to COVID-19
CPT/HCPCS: 80048; 85025; C9803; U0003; U0005

== ENCOUNTER 2022-07-28 09:23 | Day surgery (SDC) | payer MEDICARE, MEDICAID, SELFPAY ==
[2022-07-28] VITALS (12 sets, daily range): BP systolic 101–162; BP diastolic 58–101; PULSE 64–89; RESP 16–18; O2SAT 95–100; BMI 25.2
--- NOTE | 2022-07-28 | IR_ITS ---
APPROVED REPORT Patient Location: Outpatient PROCEDURES Left heart catheterization Left ventriculogram Selective coronary angiogram INDICATION Elevated calcium score on CT, Coronary artery disease, Atypical angina Informed consent was obtained prior to the procedure. COMPLICATIONS None Estimated Blood Loss: Less than 10 mls TECHNIQUE One percent lidocaine was used to anesthetize the right groin. The right femoral artery was accessed via the Seldinger technique. A 4-Sami sheath was placed in the right femoral artery. The JL-4 and JR-4 catheter was also used to perform left heart catheterization left ventriculogram and selective coronary angiogram. At the end of the procedure the patient was transferred to the post-op holding area in stable condition for arterial sheath removal. ANGIOGRAPHIC RESULTS The left main artery Normal The left anterior descending artery Is a small caliber vessel with mild proximal 10% stenoses in the mid vessel eccentric 30% stenosis. The circumflex artery Small nondominant with mild 10 to 20% mid vessel stenosis The right coronary artery Is a large dominant vessel and has a proximal 40% stenosis with a mid vessel calcified concentric 50% stenosis. The ELAINE ventriculogram reveals Normal 65% The left ventricular end-diastolic pressure 15 mmHg IMPRESSION Moderate coronary disease as described above Normal ejection fraction Mildly elevated LVEDP PLAN 1. Patient is not on any antianginal medications therefore she was not subjected to FFR. I recommend starting patient on antianginal medications and maximizing. Should patient continue with angina pectori in the future once on maximal antianginal medications only then what I bring her back to the [facility] and proceed with FFR. In the meantime medical management is more warranted 2. LDL less than 55 to be achieved with high intensity statin 3. Avoidance of tobacco products 4. Risk factor modification Electronically signed by : Henrik Louis MD 07/28/2022 11:31:56
== END 2022-07-28 14:37 | disposition home or self-care (01) ==
PROVIDERS: PCP Emergency Medicine; Visit Provider Internal Medicine
DX: I25.118 Atherosclerotic heart disease of native coronary artery with other forms of angina pectoris (principal); R06.9 Unspecified abnormalities of breathing; F17.210 Nicotine dependence, cigarettes, uncomplicated; E78.5 Hyperlipidemia, unspecified; Z79.899 Other long term (current) drug therapy; R42 Dizziness and giddiness
CPT/HCPCS: 93458; 99152; C1725; C1769; J1644; Q9967

== ENCOUNTER → 2022-08-06 07:56 | Outpatient (CLI) | payer MEDICARE, MEDICAID, SELFPAY ==
--- NOTE | 2022-08-06 09:09 | CT_ITS ---
FINAL REPORT CLINICAL HISTORY: lung cancer screening current smoker 1ppd x58 years COMPARISON: April 2021 FINDINGS: Low-Dose Chest CT CTDI vol (mGy): 2.90 DLP (mGy-cm): 94.03 Axial images were obtained from the lung apex to the mid abdomen by computed tomography. Low-dose protocol was utilized. FINDINGS: CHEST: There is no axillary adenopathy. A few small scattered mediastinal lymph nodes in the AP window and right paratracheal region, more evident than prior. The heart is proper size. There is no pericardial or pleural effusion. Limited images of the upper abdomen demonstrate the gallbladder to be absent. There is a small hiatal hernia. Lung window images demonstrate biapical pleural and parenchymal scarring. There are mild changes of centrilobular emphysema. An irregular nodular opacity in the right lower lobe measures up to 1.3 x 0.7 cm, similar to prior. There is mild scarring or atelectasis in the lung bases. IMPRESSION: Stable irregular nodular opacity in the right lower lobe. Lung RADS category 2. Recommend 12 month follow-up low-dose chest CT. Reviewed, Interpreted and Dictated by Juan Ramon Luis MD Transcribed by Jeet Collins Authenticated and [facility]
== END ==
PROVIDERS: PCP Emergency Medicine; Visit Provider Physician Assistant
DX: R06.00 Dyspnea, unspecified (principal); Z87.891 Personal history of nicotine dependence
CPT/HCPCS: 71271; 94060; 94726; 94729

== ENCOUNTER → 2023-01-20 14:46 | Outpatient (CLI) | payer MEDICARE, MEDICAID, SELFPAY ==
--- NOTE | 2023-01-20 | XR_ITS ---
FINAL REPORT CLINICAL HISTORY: R Hip pain COMPARISON: none FINDINGS: AP and frog leg views of the right hip were obtained. There is no prior exam for comparison. There is no acute fracture or dislocation. Joint space is preserved. Soft tissues are within normal limits. IMPRESSION: No acute osseous abnormality of the right hip. If pain persists, MR is recommended. Reviewed, Interpreted and Dictated by Talia Torres MD Transcribed by Shila Castorena Authenticated and [facility]
[2023-01-20 18:27] LABS: Basophils # 0.2 K/mm3 (0-0.2); Basophils % 1.5 % (0.1-2.0); Eosinophils # 0.4 K/mm3 (0.0-0.4); Eosinophils % 2.9 % (0.1-12.0); Hematocrit 46.3 % (37.0-47.0); Hemoglobin 14.8 g/dL (12.2-16.2); Lymphocytes # 3.2 K/mm3 (0.7-4.5); Lymphocytes % 24.5 % (10-50); Mean Corpuscular Hemoglobin 31.1 pg (27.0-31.2); Mean Corpuscular Volume 97.1 fl (81-99); Mean Platelet Volume 8.9 fl (7.4-10.4); Monocytes # 0.8 K/mm3 (0.1-1.0); Monocytes % 6.3 % (1.7-9.3); Neutrophils # 8.4 K/mm3 (1.8-7.8); Neutrophils % 64.7 % (37.0-80.0); Platelet Count 500 K/mm3 (142-424); Red Blood Count 4.77 M/mm3 (4.20-5.40); Red Cell Distribution Width 13.6 % (11.5-17.5)
[2023-01-20 18:39] LABS: Alanine Aminotransferase 12 U/L (12-78); Albumin/Globulin Ratio 1.4 (1.1-1.8); Alkaline Phosphatase 132 U/L (38-126); Aspartate Amino Transferase 20 U/L (14-36); Bilirubin,Total 0.4 mg/dl (0.2-1.3); Blood Urea Nitrogen 14 mg/dl (7-17); Calcium 8.9 mg/dl (8.4-10.2); Carbon Dioxide 27 mmol/L (22.0-30.0); Chloride 104 mmol/L (98-107); Chol/HDL Ratio 5.4 (1-3.5); Cholesterol 233 mg/dl (140-200); Estimated Glomerular Filt Rate 62 ml/min (>60); GFR (African American) 74 ML/MIN (>60); Globulin 2.9 g/dL (1.3-3.2); Glucose 89 mg/dl (74-100); HDL Cholesterol 43 mg/dl (40-60); Sodium 136 mmol/L (136-145); Total Protein,Serum 6.9 g/dl (6.3-8.2); Triglycerides 263 mg/dl (30-150); VLDL Cholesterol 53 mg/dL (0-40)
[2023-01-20 18:56] LABS: 25-OH Vitamin D, Total 27.6 ng/mL (30-100)
[2023-01-20 19:09] LABS: Thyroid Stimulating Hormone 2.11 uIU/mL (0.465-4.68)
[2023-01-20 19:56] LABS: Amphetamine/Metha Screen,Urine Negative ng/ml (<1000)
[2023-01-20 19:57] LABS: Barbiturates Screen,Urine Negative ng/ml (<200); Benzodiazepines Screen,Urine Negative ng/ml (<200)
[2023-01-20 19:58] LABS: Cannabinoid Screen,Urine Negative ng/ml (<50)
[2023-01-20 19:59] LABS: Cocaine Screen,Urine Negative ng/ml (<300); Methadone Screen,Urine Negative ng/ml (<300)
[2023-01-20 20:00] LABS: Opiate Screen,Urine Negative ng/ml (<300); Phencyclidine Screen,Urine Negative ng/ml (<25)
== END ==
PROVIDERS: PCP Nurse Practitioner Family; Visit Provider Nurse Practitioner Family
DX: M25.551 Pain in right hip (principal); R25.1 Tremor, unspecified; M79.2 Neuralgia and neuritis, unspecified; Z79.899 Other long term (current) drug therapy; R79.89 Other specified abnormal findings of blood chemistry; E55.9 Vitamin D deficiency, unspecified; I10 Essential (primary) hypertension
CPT/HCPCS: 73502; 80053; 80061; 80305; 82306; 84443; 85025

== ENCOUNTER → 2023-02-12 10:10 | Outpatient (CLI) | payer OTHER, MEDICARE, MEDICAID, SELFPAY ==
--- NOTE | 2023-02-12 10:25 | XR_ITS ---
FINAL REPORT CLINICAL HISTORY: bilateral knee pain FINDINGS: Right knee Three views were obtained. There is no acute fracture or dislocation. The joint spaces appear normal. No soft tissue abnormality is identified. IMPRESSION: No acute process. Reviewed, Interpreted and Dictated by Maynor Nesbitt III, MD Transcribed by Ruby Martinez Authenticated and [facility]
--- NOTE | 2023-02-12 10:25 | XR_ITS ---
FINAL REPORT CLINICAL HISTORY: bilateral knee pain COMPARISON: 07/14/2019 FINDINGS: Left knee Three views were obtained. There is no acute fracture or dislocation. There are mild degenerative changes. Chronic calcification is seen lateral to the patella. IMPRESSION: Degenerative and chronic appearing findings. Reviewed, Interpreted and Dictated by Maynor Nesbitt III, MD Transcribed by Ruby Martinez Authenticated and [facility]
== END ==
LOC: RAD 10:19
PROVIDERS: PCP Emergency Medicine; Visit Provider Orthopaedic Surgery
DX: M25.561 Pain in right knee (principal); M25.562 Pain in left knee
CPT/HCPCS: 73562